=== PATIENT | female | born 1985 | race Caucasian/White ===

== ENCOUNTER 2023-03-27 14:18 | Outpatient (CLI) | payer MEDICAID ==
--- NOTE | 2023-03-27 16:02 | XRAY Report ---
PROCEDURE: Ankle 3 View RT INDICATIONS: PAIN IN RIGHT ANKLE AND JOINTS OF RIGHT FOOT TECHNIQUE: 3 views of the ankle were acquired. COMPARISON: None. FINDINGS: Bones: No fractures or dislocations. Ankle mortise is normally aligned. No suspicious bony lesions . Soft tissues: No tibiotalar joint effusion. Achilles tendon appears normal. IMPRESSION: No acute bony abnormality. If there remains a high clinical concern for fracture, consider cross-sect ional imaging now. If pain persists, consider repeat x-ray in 10-14 days or cross-sectional imaging. Reviewed by: Harry Vasquez MD on 03/27/2023 4:01 PM PDT Approved by: Harry Vasquez MD on 03/27/2023 4:01 PM PDT Station ID: [id number]
== END 2023-03-27 14:19 | disposition home or self-care (01) ==
LOC: DI 14:18
PROVIDERS: ATTEND Nurse Practitioner
DX: M25.571 Pain in right ankle and joints of right foot (principal)